=== PATIENT | male | born 1985 ===

== ENCOUNTER 2023-10-26 06:05 | Day surgery (SDC) | payer OTHER ==
[2023-10-24 12:20] VITALS: BP 123/63
[~2023-10-26] VITALS: Ht 175.3 cm; Wt 69.9 kg
[~2023-10-26 06:05] MED LIST: DEPAKOTE ER250 MG PO; ETODOLAC200 MG PO; RESTORIL7.5 MG PO
[2023-10-26] MEDS ORDERED: CEFAZOLIN SODIUM 1,000 MG VIAL ONE (10:33)
[2023-10-26] MEDS ORDERED: EPINEPHRINE HCL/PF 1 MG/ML AMPUL ONE (11:50)
[2023-10-26] MEDS ORDERED: POVIDONE-IODINE 118 ML BOTT TOP ONE ×2 (11:50→13:00)
[2023-10-26] MEDS ORDERED: DEXAMETHASONE SODIUM PHOSPHATE 4 MG/ML VIAL ONE (11:50)
[2023-10-26] MEDS ORDERED: EPINEPHRINE HCL/PF 1 MG/ML AMPUL IR ONE (13:00)
[2023-10-26] MEDS ORDERED: CEFAZOLIN SODIUM 1,000 MG VIAL IV ONE (13:00)
[2023-10-26] MEDS ORDERED: CORTISPORIN EAR10 M1 OTIC (14:04)
[2023-10-26] MEDS ORDERED: CEPHALEXIN500 MG PO (14:04)
[2023-10-26] MEDS ORDERED: MORPHINE SULFATE 4 MG/ML VIAL IV ONE ×2 (14:35→14:50)
== END 2023-10-26 16:05 | disposition home or self-care (01) ==
LOC: CIR.AMB 06:05
PROVIDERS: ATTEND Otolaryngology Otology & Neurotology
DX: H74.21 Discontinuity and dislocation of right ear ossicles (principal); H90.11 Conductive hearing loss, unilateral, right ear, with unrestricted hearing on the contralateral side; F41.9 Anxiety disorder, unspecified; M19.90 Unspecified osteoarthritis, unspecified site; H93.19 Tinnitus, unspecified ear